=== PATIENT | female | born 1980 | race Caucasian/White ===

== ENCOUNTER 2024-12-21 15:09 | Outpatient (CLI) | payer BC, SELFPAY ==
--- OUTSIDE RECORDS SUMMARY | 2024-12-21 15:55 | XMS_ITS | Encounter Summary ---
Author Organization [facility] Address [address] [place] [address] Care Team Providers Care Pocket Grinder Operator Name Role Phone Melody Pantoja DO Primary Care Provider [phone] Encounter Details Date Type Department Care Team (Late st Contact Info) Description 10/30/2024 Results Follow-Up [facility] Family Medicine - [place] [address], [address] [place] [address] Melody Pantoja DO [address] [place], [place] [id number] CBC W/DIFF AUTOMATED, COMPREHENSIVE METABOLIC PANEL, LIPID PANEL, Additional followed-up results: 2 Social History Tobacco Use Types Packs/Day Years Used Date Smoking Tobacco: Never Passive Smoke Exposure: Past Smokeless Tobacco: Never Alcohol Use Standard Drinks/Week Comments Yes 6.7 (1 standard drink = 0.6 oz p ure alcohol) social PHQ-2 Answer Date Recorded Patient Health Questionnaire-2 Score 0 06/02/2024 Comments No Sex and Gender Information Value Date Recorded Sex Assigned at Female 08/11/2024 4:03 PM CDT Legal Sex Female 7:53 PM CDT Gender Identity Not on file Sexual Orientation Not on file documented as of this encounter Progress Notes * Melody Pantoja DO - 10/30/2024 10:06 AM CDT My chart Message sent to Patient for normal results documented in this encounter Plan of Treatment Not on file documented as of this encounter Visit Diagnoses Not on filedocumented in this encounter Additional Health Concerns Assessment Noted Time PHQ-9 Depression Total Score: 15 024 10:29 AM CDT documented as of this encounter Care Teams Pocket Grinder Operator Relationship Specialty Start Date End Date Melody Pantoja DO [address] [place] [address] PCP - General 06/12/16 documented as of this encounter
--- OUTSIDE RECORDS SUMMARY | 2024-12-21 15:55 | XMS_ITS | Clinical Summary ---
Author Organization [facility] Address [address] [place] [address] Care Team Providers Care Rn Clinical Documentation Specialist Name Role Phone Melody Pantoja DO Primary Care Provider [phone] Allergies Active Allergy Reactions Criticality Noted Date Comments Sumatriptan Nausea Only 08/11/2024 Desvenlafaxine Blurred vision 11/11/2024 Promethazine Nausea Only,Nausea and Vomiting Low Medications fluticasone propionate (FLONASE) 50 MCG/ACT nasal sprayIndications :Post-nasal drainage 1 spray by Each Nostril route 2 (two) times daily. 16 g 3 10/01/2023 Active drospirenone-eth inyl estradiol 3-0.02 MG tabletIndication s:Irregular menses Take 1 tablet by mouth daily. 84 tablet 3 07/27/2024 Active ubrogepant (UBRELVY) 100 MG tabletIndication s:Migraine with aura and without status migrainosus, not intractable Take 1 tablet (100 mg total) by mouth 2 (two) times daily as needed for Migraine. Max of 2 tablets (200 mg) in 24 hours 10 tablet 11 08/11/2024 Active buPROPion XL (WELLBUTRIN XL) 150 MG 24 hr tabletIndication s:Adjustment disorder with anxious mood Take 2 tablets (300 mg total) by mouth daily. 180 tablet 1 11/11/2024 Active Active Problems Problem Noted Date Diagnosed Date FH: pancreatic cancer 02/14/2023 FH: breast cancer 02/14/2023 Renal atrophy 12/13/2016 Irregular menses 10/10/2016 Encounters Date Type Department Care Team Description 12/09/2024 Scan [facility] HEALTH INFO SRVCS Scanned, Doc Med Group 11/11/2024 10:20 AM CDT Office Visit [facility] [address], [address] [place] [address] [phone] Melody Pantoja DO Physical (Patient here today for annual physical. ) 11/11/2024 Travel 11/04/2024 Scan HEALTH INFO SRVCS Scanned, Doc Med Group Mammogram (SCAN) 10/30/2024 Results Follow-Up [facility] [address], [address] [place] [address] [phone] Melody Pantoja DO CBC W/DIFF AUTOMATED, COMPREHENSIVE METABOLIC PANEL, LIPID PANEL, Additional followed-up results: 2 10/27/2024 Scan HEALTH INFO SRVCS Scanned, Doc Med Group Pathology (SCAN) 10/01/2024 Orders Only [facility] [address], [address] [place] [address] [phone] Melody Pantoja DO from Last 3 Months Immunizations Immunization Administration Dates Next Due Influenza Adult (Generic) 01/23/2019,01/11/2016 Tdap (Generic) 01/11/2016 Family History Medical History Relation Comments COPD Father Cancer Father Pancreatic Heart Attack Father 5 times Hypertension Father Colon Cancer Maternal Grandfather Breast Cancer Maternal Grandmother fibrosingmediastenitus Mother Alzheimers Paternal Grandfather COPD Paternal Grandfather Diabetes Paternal Grandfather Hypertension Paternal Grandfather Cancer Sister Pancreatic Relation Status Comments Father Maternal Grandfather Maternal Grandmother Mother Paternal Grandfather Sister Social History Tobacco Use Types Packs/Day Years Used Date Smoking Tobacco: Never Passive Smoke Exposure: Past Smokeless Tobacco: Never Tobacco Cessation:Counseling Given: No Alcohol Use Standard Drinks/Week Comments Yes 6.7 (1 standard drink = 0.6 oz p ure alcohol) social PHQ-2 Answer Date Recorded Patient Health Questionnaire-2 Score 0 06/02/2024 Comments No Sex and Gender Information Value Date Recorded Sex Assigned at Female 08/11/2024 4:03 PM CDT Legal Sex Female 7:53 PM CDT Gender Identity Not on file Sexual Orientation Not on file Last Filed Vital Signs Vital Sign Reading Time Taken Comments Blood Pressure 110/70 11/11/2024 10:06 AM CDT Pulse 88 11/11/2024 10:06 AM CDT Temperature 36.5 C (97.7 F) 11/11/2024 10:06 AM CDT Respiratory Rate 18 11/11/2024 10:06 AM CDT Oxygen Saturation 97% 11/11/2024 10:06 AM CDT Inhaled Oxygen Concentration - - Weight 65.6 kg (144 lb 9.6 oz) 11/11/2024 10:06 AM CDT Height 167 cm (5' 5.75) 11/11/2024 10:06 AM CDT Body Mass Index 23.52 11/11/2024 10:06 AM CDT Plan of Treatment Health Maintenance Due Date Last Done Comments Colorectal Cancer Screening Colonoscopy (10 Years) 1978 Hepatitis B Vaccines (1 of 3 - 19+ 3-dose series) 1997 Cervical Cancer Screening Pap Smear (Age 30 to 64) Every 3 Years 03/11/2001 03/11/1998 Cervical Cancer Screening Pap with HPV Testing (Age 30 to 64) Every 5 Years 2008 03/11/1998 Cervical Cancer Screening with HPV 2008 COVID-19 Vaccine (2024- season) 2024 06/09/2022, 02/06/2021, 06/28/2020, Additional history exists Influenza Adult (#1) 2024 01/23/2019, 01/11/20 16 Annual Physical 11/11/2025 11/11/2024, 12/0 09/2022, 10/31/2021, Additional history exists DTaP, Tdap and Td Vaccines (2 - Td or Tdap) 01/10/2026 01/11/2016 Mammogram Screening 11/04/2026 11/04/2024, 11/04/2024, 04/19/2023, Additional history exists Hepatitis C Completed 04/11/2022 PHQ-2 (Physician [place]) Completed 06/02/2024 Hepatitis A Vaccines Aged Out No long er eligible based on patient's age to complete this topic Meningococcal B Vaccine Aged Out No l onger eligible based on patient's age to complete this topic Meningococcal Vaccine Aged Out No samantha radha eligible based on patient's age to complete this topic Pneumococcal Vaccine: Pediatrics (0 to 5 Years) and At-Risk Patients (6 to 49 Years) Aged Out No longer eligible based on patient's age to complete this topic RSV Immunizations Under 20 Months Aged Out No longer eligible based on patient's age to complete this topic Procedures Procedure Name Priority Date/Time Associated Diagnosis Comments MAMMOGRAM GENERIC (SCAN ORDER) 11/04/2024 VITAMIN D, 25 OH Routine 10/29/2024 8:08 AM CDT Vitamin D deficiency TSH W/REFLEX Routine 10/29/2024 8:08 AM CDT Annual physical exam LIPID PANEL Routine 10/29/2024 8:08 AM CDT Annual physical exam COMPREHENSIVE METABOLIC PANEL Routine 10/29/2024 8:08 AM CDT Annual physical exam CBC W/DIFF AUTOMATED Routine 10/29/2024 8:08 AM CDT Annual physical exam PATHOLOGY GENERIC (SCAN ORDER) 10/27/2024 HEPATITIS C ANTIBODY W/RFX TO HCV RNA Routine 04/11/2022 9:17 AM ASSISTANT SPA MANAGER from Last 3 Months or Most Recently Relevant to Health Maintenance Results * MAMMOGRAM GENERIC (SCAN ORDER) (11/04/2024) Anatomical Region Laterality Modality Other 11/04/2024 us Doc Med Group Scanned SCANNING Final Resu lt * TSH W/REFLEX (10/29/2024 8:08 AM CDT) TSH 1.63 mIU/L [employer] [facility] Comment: Reference Range > or = 20 Years 0.40-4.50 Ranges First trimester 0.26-2.66 Second trimester 0.55-2.73 Third trimester 0.43-2.91 10/29/2024 8:08 AM CDT 10/29/2024 8:10 AM CDT Narrative [facility] - 10/30/2024 1:53 AM CDT FASTING:YES FASTING: YES Resulting Agency Comment Performing Organization Information: Site ID: MARK Name: Tammie Brooks Address: [address] [address] Director: Antwon Roy MD Melody Pantoja DO LABORATORY Final Result [facility]A [place] [address] [place] [address], * COMPREHENSIVE METABOLIC PANEL (10/29/2024 8:08 AM CDT) GLUCOSE 92 65 - 99 mg/dL [facility] [employer] [facility] Comment: Fasting reference interval BUN 13 7 - 25 mg/dL [facility] [employer] [facility] CREATININE S/P/B 0.91 0.50 - 0.99 mg/dL [facility] [employer] [facility] GFR ESTIMATE 79 > OR = 60 mL/min/1. 73m2 [facility] [employer] [facility] BUN CREATININE RATIO SEE NOTE: 6 (calc) [employer] [facility] Comment: Not Reported: BUN and Creatinine are within reference range. SODIUM S/P/B 138 135 - 146 mmol/L [facility] [employer] [facility] POTASSIUM S/P/B 4.4 3.5 - 5.3 mmol/L [employer] [facility] CHLORIDE S/P/B 105 98 - 110 mmol/L [employer] [facility] CO2 25 20 - 32 mmol/L [employer] [facility] CALCIUM S/P/B 9.0 8.6 - 10.2 mg/dL [employer] [facility] TOTAL PROTEIN S/P/B 7.2 6.1 - 8.1 g/dL [employer] [facility] ALBUMIN S/P/B 4.1 3.6 - 5.1 g/dL [facility] GLOBULIN 3.1 1.9 - 3.7 g/dL (calc) [employer] [facility] ALBUMIN/GLOBULI N RATIO 1.3 1.0 - 2.5 (calc) [employer] [facility] BILIRUBIN TOTAL S/P/B 0.8 0.2 - 1.2 mg/dL [facility] ALKALINE PHOSPHATASE S/P/B 58 31 - 125 U/L [facility] AST 11 10 - 35 U/L [facility] ALT 12 6 - 29 U/L [facility] 10/29/2024 8:08 AM CDT 10/29/2024 8:10 AM CDT Narrative [facility] - 10/30/2024 1:53 AM CDT FASTING:YES FASTING: YES Resulting Agency Comment Performing Organization Information: Site ID: MARK Name: Tammie Brooks Address: [address] [place] [address] Director: Antwon Roy MD Melody Pantoja DO LABORATORY Final Result [facility] [place] [address] [place] [address], * (ABNORMAL) LIPID PANEL (10/29/2024 8:08 AM CDT) CHOLESTEROL 169 <200 mg/dL [facility] HDL 61 > OR = 50 mg/dL [facility] TRIGLYCERIDES 177(H) <150 mg/dL [facility] LDL (CALCULATED) 81 mg/dL (calc) [facility] Comment: Reference range: <100 Desirable range <100 mg/dL for primary prevention; <70 mg/dL for patients with CHD or diabetic patients with > or = 2 CHD risk factors. LDL-C is now calculated using the Jose-Kell calculation, which is a validated novel method providing better accuracy than the Friedewald equation in the estimation of LDL-C. Jose WOODARD et al. MASOOD. 2013;310(19): 2724-1329 (http://education.Joppel.LiveAir Networks/faq/TIH190) CHOL/HDL RATIO 2.8 <5.0 (calc) [facility] NON HDL CHOLESTEROL 108 <130 mg/dL (calc) [facility] Comment: For patients with diabetes plus 1 major ASCVD risk factor, treating to a non-HDL-C goal of <100 mg/dL (LDL-C of <70 mg/dL) is considered a therapeutic option. 10/29/2024 8:08 AM CDT 10/29/2024 8:10 AM CDT Narrative [facility] - 10/30/2024 1:53 AM CDT FASTING:YES FASTING: YES Resulting Agency Comment Performing Organization Information: Site ID: [place] Name: Tammie Brooks Address: [address] [place] [address] Director: Antwon Roy MD Melody Pantoja DO LABORATORY Final Result [facility] [place] [place] [address] [facility] [place] [address], * CBC W/DIFF AUTOMATED (10/29/2024 8:08 AM CDT) WBC 7.0 3.8 - 10.8 Thousand/u L [facility] RBC 4.52 3.80 - 5.10 Million/uL [facility] HGB 13.4 11.7 - 15.5 g/dL [facility] HCT 40.8 35.0 - 45.0 % [facility] MCV 90.3 80.0 - 100.0 fL [facility] MCH 29.6 27.0 - 33.0 pg [facility] MCHC 32.8 32.0 - 36.0 g/dL [facility] Comment: For adults, a slight decrease in the calculated MCHC value (in the range of 30 to 32 g/dL) is most likely not clinically significant; however, it should be interpreted with caution in correlation with other red cell parameters and the patient's clinical condition. RDW 11.9 11.0 - 15.0 % [facility] PLT 304 140 - 400 Thousand/u L [facility] MPV 9.9 7.5 - 12.5 fL [facility] ABS. NEUTROPHILS 4,886 1,500 - 7,800 cells/uL [facility] ABS. LYMPHOCYTES 1,463 850 - 3,900 cells/uL [facility] ABS. MONOCYTES 567 200 - 950 cells/uL [facility] ABS. EOSINOPHILS 63 15 - 500 cells/uL [facility] ABS. BASOPHILS 21 0 - 200 cells/uL [facility] SEG NEUTROPHILS 69.8 % [facility] LYMPHOCYTES 20.9 % [facility] MONOCYTES 8.1 % [facility] EOSINOPHILS 0.9 % [facility] BASOPHILS 0.3 % [facility] 10/29/2024 8:08 AM CDT 10/29/2024 8:10 AM CDT Narrative [facility] - 10/30/2024 1:53 AM CDT FASTING:YES FASTING: YES Resulting Agency Comment Performing Organization Information: Site ID: MARK Name: [facility] Address: [address] [place] [address], [place] [address] Director: Antwon Roy MD Melody Pantoja DO LABORATORY Final Result [facility] [employer] [facility] [id number] [place] [address], [place] [address], * VITAMIN D, 25 OH (10/29/2024 8:08 AM CDT) Pathologist [facility] VITAMIN D 25 HYDROXY TOTAL S/P/B 48 30 - 100 ng/mL [employer] [facility] Comment: Vitamin D Status 25-OH Vitamin D: Deficiency: <20 ng/mL Insufficiency: 20 - 29 ng/mL Optimal: > or = 30 ng/mL For 25-OH Vitamin D testing on patients on D2-supplementation and patients for whom quantitation of D2 and D3 fractions is required, the QuestAssureD(TM) 25-OH VIT D, (D2,D3), LC/MS/MS is recommended: order code 27272 (patients >2yrs). See Note 1 Note 1 For additional information, please refer to http://education.ACTV8/faq/NUQ139 (This link is being provided for informational/ educational purposes only.) 10/29/2024 8:08 AM CDT 10/29/2024 8:10 AM CDT Narrative [facility] - 10/30/2024 1:53 AM CDT FASTING:YES FASTING: YES Resulting Agency Comment Performing Organization Information: Site ID: MARK Name: [facility] Address: [address] [address] Director: Antwon Roy MD Melody Pantoja DO LABORATORY Final Result Performing Organization Address City/[facility]/ZIP Co de Phone Number [facility] [address] [address], * PATHOLOGY GENERIC (SCAN ORDER) (10/27/2024) 10/27/2024 us Doc [facility] Scanned SCANNING Final Resu lt * HEPATITIS C ANTIBODY W/RFX TO HCV RNA (04/11/2022 9:17 AM ASSISTANT SPA MANAGER) HEPATITIS C AB NON-REACT ELIJAH NON-REACT ELIJAH [employer] [facility] SIGNAL TO CUTOFF <0.02 <1.00 [facility] Comment: HCV antibody was non-reactive. There is no laboratory evidence of HCV infection. In most cases, no further action is required. However, if recent HCV exposure is suspected, a test for HCV RNA (test code 34791) is suggested. For additional information please refer to http://education.SvitStyle/faq/ULA73s0 (This link is being provided for informational/ educational purposes only.) 04/11/2022 9:17 AM ASSISTANT SPA MANAGER 04/11/2022 9:20 AM ASSISTANT SPA MANAGER Narrative [facility] - 04/12/2022 11:01 AM ASSISTANT SPA MANAGER FASTING:YES FASTING: YES Resulting Agency Comment Performing Organization Information: Site ID: [place] Name: Tammie Brooks Address: [address] [address] Director: Antwon Roy MD Melody Pantoja DO LABORATORY Final Result Performing Organization Address [facility]/ZIP Co de Phone Number [facility] [employer] [address] [place] [address], from Last 3 Months or Most Recently Relevant to Health Maintenance Insurance [facility] Care Teams Rn Clinical Documentation Specialist Relationship Specialty Start Date End Date Melody Pantoja DO [address] [place], [place] [phone] PCP - General 06/12/16
--- OUTSIDE RECORDS SUMMARY | 2024-12-21 15:55 | XMS_ITS | Encounter Summary ---
Author Organization [facility] Address [address] [place] [address] Care Team Providers Care Human Resources File Clerk Name Role Phone Melody Pantoja DO Primary Care Provider [phone] Encounter Details Date Type Department Care Team (Late st Contact Info) Description 11/08/2023 MyChart Message Enc [facility] Family Medicine - [place] [address] [place] [address] Melody Pantoja DO [address] [place], [place] [id number] [employer] Social History Tobacco Use Types Packs/Day Years Used Date Smoking Tobacco: Never Passive Smoke Exposure: Past Smokeless Tobacco: Never Alcohol Use Standard Drinks/Week Comments Yes 6.7 (1 standard drink = 0.6 oz p ure alcohol) social PHQ-2 Answer Date Recorded Patient Health Questionnaire-2 Score 1 10/01/2023 Comments No Sex and Gender Information Value Date Recorded Sex Assigned at Female 08/11/2024 4:03 PM CDT Legal Sex Female 7:53 PM CDT Gender Identity Not on file Sexual Orientation Not on file documented as of this encounter Plan of Treatment Not on file documented as of this encounter Visit Diagnoses Not on filedocumented in this encounter Additional Health Concerns Infection Onset Date Last Indicated Resolved Time Respiratory Rule Out 06/02/2024 06/02/2024 025 9:12 AM CDT Assessment Noted Time PHQ-9 Depression Total Score: 15 024 10:29 AM CDT documented as of this encounter Care Teams Human Resources File Clerk Relationship Specialty Start Date End Date Melody Pantoja DO [address] [place] [address] PCP - General 06/12/16 documented as of this encounter
--- OUTSIDE RECORDS SUMMARY | 2024-12-21 15:55 | XMS_ITS | Encounter Summary ---
Author Organization [facility] Healthcare Address [address] [place] [address] Care Team Providers Care Can Coverer Name Role Phone Melody Pantjoa MD Primary Care Provider [phone] Corbin Munoz MD Unavailable [phone] Janette Rader RN Unavailable Unavailable Encounter Details Date Type Department Care Team (Late Contact Info) Description 08/22/2020 Telephone [facility] - [facility] [place] [address] Transcribed Order, Provider Social History Tobacco Use Types Packs/Day Years Used Date Smoking Tobacco: Never Smokeless Tobacco: Never Alcohol Use Standard Drinks/Week Comments No 0 (1 standard drink = 0.6 oz pur e alcohol) Comments No Sex and Gender Information Value Date Recorded Sex Assigned at Not on file Legal Sex Female 12:12 PM GENETIC ENGINEER Gender Identity Not on file Sexual Orientation Not on file documented as of this encounter Plan of Treatment Upcoming Encounters Date Type Department Care Team (Late Contact Info) Description 02/18/2025 9:30 AM GENETIC ENGINEER Hospital Encounter [facility] [address] [place] [address] Moustapha Saha MD [address] [place] [address] 02/18/2025 9:30 AM GENETIC ENGINEER - 02/18/2025 10:00 AM GENETIC ENGINEER Surgery [facility] [address] [place] [address] Moustapha Saha MD [address] [facility] [address] [place] [address] COLONOSCOPY Scheduled Procedures Name Priority Associated Diagnoses Date/Ti me COLONOSCOPY Screening 02/18/2025 9:30 AM GENETIC ENGINEER documented as of this encounter Visit Diagnoses Not on filedocumented in this encounter Care Teams Can Coverer Relationship Specialty Start Date End Date Melody Pantoja MD PCP - General 02/18/17 Corbin Munoz MD [address] [place] [address] Medical Services Coordinator Obstetrics and Gynecology 04/15/17 Janette Rader RN Registered Nurse Gastroenterology 08/20/18 documented as of this encounter
--- OUTSIDE RECORDS SUMMARY | 2024-12-21 15:55 | XMS_ITS | Encounter Summary ---
Author Organization [facility] Address [address] [place] [address] Care Team Providers Care Rehab Spec Name Role Phone Melody Pantoja DO Primary Care Provider [phone] Encounter Details Date Type Department Care Team (Late st Contact Info) Description 08/11/2024 MyChart Message Enc [facility] Family Medicine - [place] [address] [place] [address] Melody Pantoja DO [address] [place], [place] [phone] New meds Social History Tobacco Use Types Packs/Day Years [...] documented as of this encounter Care Teams Rehab Spec Relationship Specialty Start Date End Date Melody Pantoja DO [address] [place], [place] [phone] PCP - General 06/12/16 documented as of this encounter
--- OUTSIDE RECORDS SUMMARY | 2024-12-21 15:55 | XMS_ITS | Clinical Summary ---
Author Organization [facility] Address [address] [place] [address] Care Team Providers Care Gin Pole Operator Name Role Phone Jenna Mi MD Primary Care Provider [phone] Source Comments [facility],non-owned Affiliates and Associated Physician Practices is amultiple site organization consisting of ambulatory clinics and hospital sitesin [place], [place], [place] and [place]. This disclosure is being madepursuant to the Care Everywhere program and may not contain all information available regarding this patient. Last updated 17.[facility] Allergies Active Allergy Reactions Criticality Noted Date Comments Promethazine Nausea and/or Vomiting 12/01/2010 Medications * Be aware that medications may not be up to date on this document. Alwaysverify current medications with the patient. Vit-Fe Fumarate-FA ( VITAMIN) 28-0.8 MG tablet Take 1 Tab by mouth once daily Active oxyCODONE-aceta minophen (PERCOCET) 5-325 MG tablet Take 1 Tab by mouth every 6 hours as needed for Pain 15 Tab 6 Active ibuprofen (MOTRIN) 600 MG tablet Take 1 Tab by mouth every 6 hours as needed for Pain 60 Tab 1 6 Active docusate sodium (COLACE) 100 MG capsule Take 1 Cap by mouth 2 times daily as needed for Constipation 60 Cap 1 6 Active Active Problems Patient Care Coordination No te Formatting of this note migh t be different from the original. 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 [facility] PATIENT--PLEASE CALL [phone] (ex 2) IF TRIAGED OR ADMITTED Care Provider: Dr. Corbin Munoz [facility] [place] consultants involved: RN-Zi; MFM- Charli/Elina; Loss Prevention Supervisor-Carl; Genetic Counselor-Ricardo; Urology-Bela; Endocrinology- Wilver Diagnosis: Discrepancy between sex reported by amniocentesis (male) and ultrasound findings of female genitalia care needed at : Evaluation by professor of archaeology at [facility] after delivery: per Urology consult 11.02: If the baby is otherwise healthy, they wouldn't need to necessarily be transferred to the NICU here, depending on what the exam shows. Once she delivers, I, the endocrinologists and geneticists should be notified, and we can expeditiously agree on gender assignment, ideally before the baby goes home. Gender should not be assigned until after the DSD team has evaluated the baby and spoken with the family. Forester Silviculture: Dr. Munoz Planned surveillance: Final [facility] visit on 12.29.15 Planned delivery location: [facility] with Dr. Munoz Planned GA at delivery: 39w, Overnight IOL scheduled for arrival at 2000 on 01/10/2016 Planned mode of delivery: hx Placenta Instructions: Not needed for further evaluation by [facility] Autopsy indicated: / is not anticipated; however, in the unlikely event of loss, autopsy would be helpful in establishing a diagnosis. Obtaining sample for possible future DNA testing would also be important. Genetics note: genetic diagnostic testing was performed by amniocentesis. Microarray was normal, sex chromosomes are XY and fetus is SRY+. Fetus appears female by ultrasound examination; therefore, a DSD is strongly suspected in this fetus. Please request Genetics consult by calling the Genetics office at [phone] prior to ordering additional genetic studies. Coastal/Harbor Defense Officer Concerns: 11/03/15- There are no social service concerns identified at this time This care plan is based on evaluation and is subject to change based on assessment. Please see Images or Cardiac under Chart Review for US/ ECHO/ MRI reports. Immunizations Immunization Administration Dates Next Due INFLUENZA VACCINE, QUADR. (F LUZONE; FLULAVAL; FLUARIX; AFLURIA QUADRIVALENT; 6MO+), 0.5 ML (IIV4) 01/23/2019,01/11/2016 TDAP (7yrs+) 01/11/2016 Family History Medical History Relation Name Comments [place] Father Cancer - Colon Maternal Grandfather Cancer - Breast Maternal Grandmother Relation Name Status Comments Father Alive Maternal Grandfather Maternal Grandmother Mother Alive Social History Tobacco Use Types Packs/Day Years Used Date Smoking Tobacco: Never Smokeless Tobacco: Never Alcohol Use Standard Drinks/Week Comments Yes 1.7 (1 standard drink = 0.6 oz p ure alcohol) Comments No Sex and Gender Information Value Date Recorded Sex Assigned at Not on file Legal Sex Female 12:19 PM TROUBLE LINEMAN Gender Identity Not on file Sexual Orientation Not on file Last Filed Vital Signs Vital Sign Reading Time Taken Comments Blood Pressure 116/63 01/11/2016 8:50 AM CDT Pulse 79 01/11/2016 8:50 AM CDT Temperature 36.4 C (97.6 F) 01/11/2016 8:50 AM CDT Respiratory Rate 18 01/11/2016 8:50 AM CDT Oxygen Saturation 100% 01/11/2016 5:30 AM CDT Inhaled Oxygen Concentration - - Weight 72.6 kg (160 lb) 01/10/2016 8:11 PM CDT Height 170.2 cm (5' 7) 01/10/2016 8:11 PM CDT Body Mass Index 25.06 01/10/2016 8:11 PM CDT Plan of Treatment Health Maintenance Due Date Last Done Comments COLOGUARD (AGES 45-75) - COL ON CA SCREENING 1978 COLON MONITORING 1978 COLONOSCOPY - COLON CA SCREENING 1978 CT COLONOGRAPHY - COLON CA SCREENING 1978 Colorectal Cancer Screening 1978 FIT - COLON CA SCREENING 1978 FLEX SIG - COLON CA SCREENING 1978 LIPID TESTING 1978 MAMMOGRAM 1978 HIV SCREENING 1993 HEPATITIS C SCREENING 10/18/1996 HEPATITIS B VACCINE (1 of 3 - 19+ 3-dose series) 1997 DEPRESSION SCREENING 03/11/2024 COVID-19 VACCINE (1 - 2023-2 5 season) 2024 INFLUENZA VACCINE (#1) 2024 9, 01/11/2016 DTAP/TDAP/TD VACCINES (2 - T d or Tdap) 01/10/2026 01/11/2016 ZOSTER VACCINE (1 of 2) 2028 HIB VACCINE Aged Out No longer eligi ble based on patient's age to complete this topic HPV VACCINE Aged Out No longer eligi ble based on patient's age to complete this topic MENINGOCOCCAL (Group B) VACCINE SHARED DECISION-MAKING Aged Out No longer eligible based on patient's age to complete this topic MENINGOCOCCAL GROUPS A/C/Y/W VACCINE Aged Out No longer eligible b ased on patient's age to complete this topic PNEUMOCOCCAL VACCINE Aged Out No long er eligible based on patient's age to complete this topic Insurance [facility] * Guarantor: SHAUN ROLLINS Account Type Relation to Patient Date of Phone Billing Address Personal/Family 1980 ([address] [place] [address] Advance Directives * Full Code (Latest Code Status on File) Date Activated Date Inactivated Comments 01/10/2016 9:51 PM 01/11/2016 3:02 PM * Full Code Date Activated Date Inactivated Comments 01/10/2016 8:29 PM 01/10/2016 9:51 PM Care Teams Gin Pole Operator Relationship Specialty Start Date End Date Jenna Mi MD [address] [place] [address] PCP - General Internal Medicine 09/02/15
--- OUTSIDE RECORDS SUMMARY | 2024-12-21 15:56 | XMS_ITS | Clinical Summary ---
Author Organization [facility] Address [address] [place] [id number] Care Team Providers Care Counseling Center Manager Name Role Phone Melody Pantoja MD Primary Care Provider Corbin Munoz MD Unavailable [phone] Janette Rader RN Unavailable Unavailable Allergies Active Allergy Reactions Criticality Noted Date Comments Promethazine Nausea only,Nausea And Vomiting Low Medications No known medications Active Problems Problem Noted Date Diagnosed Date Family history of breast cancer 04/15/2017 Family history of pancreatic cancer 04/15/2017 Encounters Date Type Department Care Team Description 11/04/2024 1:11 PM CDT - 11/04/2024 11:59 PM CDT Hospital Encounter [facility] - Imaging [address] [place] [address] Screening mammogram, encounter for Discharge Disposition: Discharge to home or self care 10/30/2024 Orders Only [facility] Medicine Gastroenterology [address] [place] [address] [place] [address] Uma Weiss MD Pancreatic cyst (Primary Dx) 10/30/2024 Telephone [facility] Medicine Gastroenterology [address] [place] [address] [place] [address] Jovita Pimentel RMA 10/27/2024 Telephone [facility] Medicine Gastroenterology [address] [place] [address] [place] [address] Jovita Pimentel RMA 10/27/2024 Orders Only [facility] Gastroenterology [address] [place] [address] [place] [address] Uma Weiss MD from Last 3 Months Medical History Medical History Date Comments BRCA2 negative BRCA1 negative Family History Medical History Relation Name Comments Pancreatic cancer Father Esophageal cancer Father's Brother Rectal cancer Father's Brother Colon cancer Maternal Grandfather Breast cancer Maternal Grandmother Ovarian cancer Maternal Grandmother Pancreatic cancer Mother's Brother 1 Lung cancer Mother's Brother 2 Lung cancer Mother's Brother 3 Breast cancer Mother's Sister 1 57 Breast cancer Mother's Sister 2 Skin cancer Paternal Grandfather Pancreatic cancer Sister Relation Name Status Comments Daughter 1 Alive Daughter 2 Alive Daughter 3 Alive Father Alive Father's Brother Alive Father's Sister Alive Maternal Grandfather (Age 97) Maternal Grandmother (Age 76) Mother Alive Mother's Brother 1 (Age 78) Mother's Brother 2 (Age 76) Mother's Brother 3 Alive Mother's Brother 4 Alive Mother's Sister 1 Alive Mother's Sister 2 (Age 69) Paternal Grandfather (Age 90) Paternal Grandmother (Age 88) Sister (Age 48) Social History Tobacco Use Types Packs/Day Years Used Date Smoking Tobacco: Never Smokeless Tobacco: Never Alcohol Use Standard Drinks/Week Comments No 0 (1 standard drink = 0.6 oz pur e alcohol) Comments No Sex and Gender Information Value Date Recorded Sex Assigned at Not on file Legal Sex Female 12:12 PM EPIC ANESTHESIA ANALYST Gender Identity Not on file Sexual Orientation Not on file Obstetrics History Para Term AB IAB SAB Ectopic Multiple Livin g Live Births 4 3 3 3 3 Date Outcome GA Total Labor Labor/2nd/3rd Weight Sex Type Anes PTL Pooja A1 A5 Name Clin Term Term Term Last Filed Vital Signs Vital Sign Reading Time Taken Comments Blood Pressure 106/69 05/14/2018 1:27 PM EPIC ANESTHESIA ANALYST Pulse 77 05/14/2018 1:27 PM EPIC ANESTHESIA ANALYST Temperature - - Respiratory Rate - - Oxygen Saturation 99% 05/14/2018 1:27 PM EPIC ANESTHESIA ANALYST Inhaled Oxygen Concentration - - Weight 65.8 kg (145 lb) 10/30/2024 9:40 AM CDT Height 167.6 cm (5' 6) 10/30/2024 9:40 AM CDT Body Mass Index 23.4 10/30/2024 9:40 AM CDT Plan of Treatment Upcoming Encounters Date Type Department Care Team (Late st Contact Info) Description 02/18/2025 9:30 AM EPIC ANESTHESIA ANALYST Hospital Encounter [facility] GI [facility] [address] [place] [id number] Moustapha Saha MD [address] [place] [id number] 02/18/2025 9:30 AM EPIC ANESTHESIA ANALYST - 02/18/2025 10:00 AM EPIC ANESTHESIA ANALYST Surgery [facility] [address] [place] [address] Moustapha Saha MD [address] [place] [id number] COLONOSCOPY Scheduled Procedures Name Priority Associated Diagnoses Date/Ti me COLONOSCOPY Screening 02/18/2025 9:30 AM EPIC ANESTHESIA ANALYST Health Maintenance Due Date Last Done Comments Colon Cancer Screening-Colonoscopy 1978 Depression Screening 1978 Hepatitis C Screening 1978 Hepatitis B Screening 1996 Regular Well Visit/Exam 18-64 1996 Cervical Cancer Screening 03/11/1999 03/11/1998 Influenza Vaccine (#1) 2024 01/23/2019, 2015 Breast Cancer Screening-Mammogram 11/04/2025 11/04/2024, 04/19/2023, 10/04/2021, Additional history exists DTaP/Tdap/Td Vaccine (2 - Td or Tdap) 01/10/2026 01/11/2016 HPV Vaccines Aged Out No longer eligi ble based on patient's age to complete this topic Pneumococcal vaccine <65 Aged Out No longer eligible based on patient's age to complete this topic Procedures Procedure Name Priority Date/Time Associated Diagnosis Comments SCREENING MAMMOGRAM BILATERAL W LARS Schedule Routine, Read Routine (OP Routine) 11/04/2024 1:38 PM CDT Screening mammogram, encounter for from Last 3 Months Results * Screening Mammogram Bilateral W Lars (11/04/2024 1:38 PM CDT) Anatomical Region Laterality Modality Breast Bilateral Mammography Impressions 11/08/2024 12:30 PM CDT Bilateral No evidence of malignancy in either breast. OVERALL BI-RADS FINAL ASSESSMENT: 2 - Benign RECOMMENDATION: Recommend bilateral annual screening mammography. Narrative 11/08/2024 12:30 PM CDT EXAMINATION: Screening Mammogram Bilateral W Lars: 11/04/2024 COMPARISON: Relevant prior studies available at the time of interpretation were reviewed, including the most recent mammogram on: 04/19/2023. TECHNIQUE: Mammography was performed with 2D and 3D digital breast tomosynthesis (DBT) images. CAD was utilized. BREAST PARENCHYMAL COMPOSITION: There are scattered areas of fibroglandular density. FINDINGS: Bilateral There is no suspicious mass, calcification, or architectural distortion in either breast. us Self Screening Mammogram IMG MAMMO PROCEDURES Fi nal Result from Last 3 Months Insurance [facility] CHOICE PLUS [facility] CHOICE PLUS ANTHEM ACCESS Member Subscriber Plan / Payer (Ef fective 2019-Present) Name:Suzie Hodges Relation to Subscriber:Self Name:Suzie Hodges Payer ID:[id number] (NAIC) Type:[employer] Address: [address] [place] OOS ANTHEM ACCESS ANTHEM ACCESS Care Teams Counseling Center Manager Relationship Specialty Start Date End Date Melody Pantoja MD PCP - General 02/18/17 Corbin Munoz MD [address] [address] Mate Relief Obstetrics and Gynecology 04/15/17 Janette Rader, RN Registered Nurse Gastroenterology 08/20/18
[2024-12-23 02:07] LABS: Free Testosterone (Direct) 1.4 pg/mL (0.0-4.2)
== END 2024-12-21 15:10 | disposition home or self-care (01) ==
LOC: ANHLAB 15:11
PROVIDERS: PCP Urology; Visit Provider Obstetrics & Gynecology
DX: F52.0 Hypoactive sexual desire disorder (principal)
CPT/HCPCS: 84402; 84403